=== PATIENT | female | born 1995 | race African-American/Black ===

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

== ENCOUNTER 2024-08-19 10:19 | Emergency (ER) | payer MEDICAID ==
[~2024-08-19] VITALS: Ht 165.1 cm; Wt 111.3 kg
[2024-08-19 10:22] VITALS: PULSE 69; RESP 16; O2SAT 97
--- NOTE | 2024-08-19 10:40 | ED.PDOC ---
GI ASSESSMENT HPI Comments 28 y/o F, presents to the ED for CC of abdominal pain. Patient states, that she has been experiencing subpubic abdominal pain that radiates to her lower back x4days. Patient relays, associated symptoms of nausea and vomiting. Patient comments on, being unsure if currently as menstrual cycle is irregular. Patient smokes tobacco, drinks ETOH occasionally, and smokes marijuana. Patient denies fever, chills, body-aches, or diarrhea. No other symptoms or modifying factors at this time. Time Seen by MD: 10:30 Primary Care Provider: ERICK Reviewed Notes: Nurses Notes, Medications, Allergies Allergies: Coded Allergies: NO KNOWN ALLERGIES (Unverified , 05/09/13) Home Meds Reported Medications No Reported Medication (NO REPORTED MEDICATION) Ea, 0 CO UNK PATIENT HAS NO REPORTED MEDICATIONS 05/09/13 Information Source: Patient Mode of Arrival: Ambulatory Timing: Days Duration: Since onset Prehospital treatment: None Quality: None Vomitus: Watery Stool: Normal Severity: Mild Recent: None Recent Hx of: None Pain Location: Suprapubic Modifying Factors: Nothing Associated sign and symptoms: Nausea, Vomiting Past Medical History PAST MEDICAL HISTORY: Asthma Surgical History: Denies all surgeries SCHOOL BUS AIDE History: No Pertinent SCHOOL BUS AIDE History Family History Family History: No family hx of DM, No family hx of HTN Social History Smoker: Cigarettes Alcohol: Denies ETOH Use Drugs: Marijuana Lives In: Home Constitutional: denies: chills, diaphoresis, fatigue, fever, malaise, sweats, weakness, others EENTM: denies: blurred vision, double vision, ear bleeding, ear discharge, ear drainage, ear pain, ear ringing, eye pain, eye redness, hearing loss, mouth pain, mouth swelling, nasal discharge, nose bleeding, nose congestion, nose pain, photophobia, tearing, throat pain, throat swelling, voice changes, others Respiratory: denies: cough, hemoptysis, orthopnea, SOB at rest, shortness of breath, SOB with excertion, stridor, wheezing, others Cardiovascular: denies: chest pain, dizzy spells, diaphoresis, Dyspnea on exertion, edema, irregular heart beat, left arm pain, lightheadedness, palpitations, PND, syncope, others Gastrointestinal: reports: abdominal pain, nausea, vomiting; denies: abdomen distended, blood streaked bowels, constipated, diarrhea, dysphagia, difficulty swallowing, hematemesis, melena, poor appetite, poor fluid intake, rectal bleeding, rectal pain, others Genitourinary: denies: abnormal vagina bleeding, burning, dyspareunia, dysuria, flank pain, frequency, hematuria, incontinence, pain, , vagina discharge, urgency, others Neurological: denies: dizziness, fainting, headache, left sided numbness, left sided weakness, numbness, paresthesia, pre-existing deficit, right sided numbness, right sided weakness, seizure, speech problems, tingling, tremors, weakness, others Musculoskeletal: denies: back pain, gout, joint pain, joint swelling, muscle pain, muscle stiffness, neck pain, others Integumetry: denies: bruises, change in color, change in hair/nails, dryness, laceration, lesions, lumps, rash, wounds, others Allergic/Immunocompromised: denies: Difficulty Healing, Frequent Infections, Hives, Itching, others Hematologic/Lymphatic: denies: anemia, blood clots, easy bleeding, easy bruisi ng, swollen glands, others Endocrine: denies: excessive hunger, excessive sweating, excessive thirst, exce ssive urination, flushing, intolerance to cold, intolerance to heat, unexplained weight gain, unexplained weight loss, others Psychiatric: denies: anxiety, bipolar disorder, depression, hopeless, panic disorder, schizophrenia, sleepless, suicidal, others All Other Systems: Reviewed and Negative Physical Exam General Appearance: Mild Distress HEENT: Normal ENT Inspection, Pharynx Normal, TMs Normal Neck: Full Range of Motion, Non-Tender, Normal, Normal Inspection Respiratory: Chest Non-Tender, Lungs Clear, No Accessory Muscle Use, No Respiratory Distress, Normal Breath Sounds Cardiovascular: No Edema, No JVD, No Murmur, No Gallop, Normal Peripheral Pulses, Regular Rate/Rhythm Breast Exam: Deferred Gastrointestinal: No Organomegaly, Non Tender, No Pulsatile Mass, Normal Bowel Sounds, Soft Genitalia: Deferred Pelvic: Deferred Rectal: Deferred Extremities: No calf tenderness, Normal capillary refill, Normal inspection, Normal range of motion, Non-tender, No pedal edema Musculoskeletal : Apperance: Normal Neurologic: Alert, 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 Was a procedure done?: No GI differential Dx Differential Diagnosis: Cholecystitis, Constipation, Gastritis/PUD, Gastroenteritis, , Bacterial, Viral X-Ray, Labs, Meds, VS Vital Signs Date Time Temp Pulse Resp B/P (MAP) Pulse Ox O2 Delivery O2 Flow Rate FiO2 08/19/24 13:00 97.5 70 22 117/70 (86) 98 97.5 08/19/24 10:22 98.3 69 16 124/82 (96) 97 08/19/24 10:22 98.3 69 16 124/82 (96) 97 98.3 08/19/24 10:22 69 16 97 Room Air* 0 21 Lab Test 08/19/24 13:08 08/19/24 10:32 Range/Units Beta HCG, Quantitative 6944.8 H 1.5-4.2 mIU/mL Urine Color Light-yellow Yellow Urine Clarity Turbid H Clear Urine pH 6.5 5.0-9.0 Urine Specific [place] 1.016 1.001-1.035 Urine Protein Negative Negative Urine Ketones Negative Negative Urine Blood Negative Negative /uL Urine Nitrite Negative Negative Urine Bilirubin Negative Negative Urine Urobilinogen Normal Negative mg/dL Urine Leukocyte Esterase Trace Negative /uL Urine RBC 2 0 - 4 /hpf Urine Microscopic WBC 1 0-5 /HPF Urine Squamous Epithelial Cells Mod <5 /hpf Urine Bacteria Few H None Seen /hpf Urine Glucose Normal Normal mg/dL Urine Test Positive Negative The urine test is negative for infection The test is positive Pelvic ultrasound shows: IMPRESSION: Gestational sac within the uterus with no identifiable pole. This may be veterans contact representative of a blighted versus early . Correlation with follow-up beta hCG levels. Follow-up ultrasound could be performed if clinically indicated. Possible small subchorionic hematoma measures 0.2 cm. The patient is being discharged with a blighted ovum The patient was to return to the emergency department's for repeat quantitative hCG The patient will return to the emergency department's condition worsens. Images Reviewed?: Images reviewed and evaluated by me Time of 1ST Reevaluation: 11:00 Reevaluation 1ST: Unchanged Patient Education/Counseling: Diagnosis, Treatment, Prognosis, Need For Follow Up Family Education/Counseling: No Family Present Additional Information - I reviewed the following notes from patient's past medical encounters: 07/30/16 DX: ABD PAIN DUE TO FALL - The following tests were ordered, and results were reviewed by me: UA, TEST URINE - I discussed treatments and results with medical personnel and: PATIENT Departure 1 Departure Time of Disposition: 14:14 Impression: Primary Impression: Threatened Disposition: HOME / SELF CARE / HOMELESS Condition: Fair Discharged With: Self Critical Care Note Critical Care Time?: No Stability Stability form required: No Heart Score Heart Score: Heart Score Response (Comments) Value History N/A 0 EKG N/A 0 Age N/A 0 Risk Factors N/A 0 Troponin N/A 0 Total 0 I personally scribed for ROSALVA KILGORE MD ([email or web address]) on 08/19/24 at 10:40. Electronically submitted by Genny Shell ([email or web address]). I personally scribed for ROSALVA KILGORE MD ([email or web address]) on 08/19/24 at 11:42. Electronically submitted by Genny Shell ([employer]). I personally scribed for ROSALVA KILGORE MD ([email or web address]) on 08/19/24 at 11:43. Electronically submitted by Genny Shell ([employer]). ROSALVA KILGORE MD Aug 19, 2024 10:40
[2024-08-19 12:19] LABS: Urine Bacteria FEW /hpf (None Seen); Urine Blood Negative /uL (Negative); Urine Clarity Turbid (Clear); Urine Color Light-Yellow (Yellow); Urine Protein, UAD Negative (Negative); Urine Specific Gravity 1.016 (1.001-1.035); Urine Squamous Epithelial Cell MOD /hpf (<5); Urine Urobilinogen Normal (Negative); Urine WBC 1 /HPF (0-5); Urine pH 6.5 (5.0-9.0)
[2024-08-19 13:00] VITALS: BP 117/70; PULSE 70; RESP 22; TEMP 97.5; O2SAT 98
--- NOTE | 2024-08-19 14:09 | DVH ---
OB ULTRASOUND <14 WEEKS: HISTORY: pain TECHNIQUE: Multiple real-time grayscale sonographic images of the pelvis with duplex Doppler color f low, spectral and M-mode analysis. TRANSDUCERS: Transabdominal COMPARISON: None FINDINGS: The uterus measures 8.6 x 4.9 x 4.0 cm The cervix is not visualized Right ovary measures 2.5 x 1.9 x 2.0 cm with normal Doppler color flow. Left ovary measures 2.5 x 2.6 x 2.2 cm with normal Doppler color flow. Left ovarian possible corpus l uteal cyst measures 1.6 cm. Left ovarian cyst measures 1.4 cm. Gestational sac type appearing structure in the uterus measures 0.7 cm. Yolk sac is visualized. pole is not visualized. Amniotic fluid is subjectively within normal limits. Vicenta-gestational space: Small subchorionic hematoma is present measuring 0.2 cm. IMPRESSION: Gestational sac within the uterus with no identifiable pole. This may be outside sales representative of a b lighted versus early . Correlation with follow-up beta hCG levels. Follow-up ultra sound could be performed if clinically indicated. Possible small subchorionic hematoma measures 0.2 cm.
== END 2024-08-19 14:30 | disposition home or self-care (01) ==
LOC: ER 10:19
DX: O20.0 Threatened abortion (principal); F17.210 Nicotine dependence, cigarettes, uncomplicated; J45.909 Unspecified asthma, uncomplicated; Z3A.01 Less than 8 weeks gestation of pregnancy
CPT/HCPCS: 36415; 76801; 81001; 81025; 84702